=== PATIENT | female | born 1995 | race African-American/Black ===

== ENCOUNTER 2021-07-08 07:23 | Observation (INO) | payer MEDICAID ==
[~2021-07-08] VITALS: Ht 172.7 cm; Wt 108.9 kg
[2021-07-08] MEDS ORDERED: PREN1TAB78 MT (08:10)
== END 2021-07-08 10:00 | disposition home or self-care (01) ==
LOC: 8 EST LDRP 07:23
PROVIDERS: ADMIT Obstetrics & Gynecology; ATTEND Obstetrics & Gynecology
DX: O62.9 Abnormality of forces of labor, unspecified (principal); O26.893 Other specified pregnancy related conditions, third trimester; R10.9 Unspecified abdominal pain; Z3A.39 39 weeks gestation of pregnancy
CPT/HCPCS: 59025; 76815; 76818; G0378; 99281

== ENCOUNTER 2021-07-11 13:21 | Inpatient (IN) | payer MEDICAID ==
[~2021-07-11] VITALS: Ht 172.7 cm; Wt 108.9 kg
[~2021-07-11 13:21] MED LIST: PREN1TAB78 MT
[2021-07-11] MEDS ORDERED: LIDOCAINE HCL 1% 20ML VIAL (Pyxis) INJ INFIL SCH ×2 (14:30→15:15)
[2021-07-11] MEDS ORDERED: BUTORPHANOL TARTRATE 2 MG/ML VIAL IV PRN (14:30)
[2021-07-11] MEDS: LACTATED RINGERS 1,000 ML IV SCH ×2 (14:30→18:40)
[2021-07-11] MEDS ORDERED: METHYLERGONOVINE MALEATE 0.2 MG/ML IM PRN ×2 (14:30→15:15)
[2021-07-11] MEDS ORDERED: DEXT 5%/LR + PITOCIN 20UNITS/L 1,000 ML IV SCH ×2 (14:30→15:15)
[2021-07-11] MEDS ORDERED: LACTATED RINGERS 1,000 ML IV SCH (15:15)
[2021-07-11] MEDS ORDERED: NALOXONE HCL 0.4 MG/ML 1ML VIAL IM PRN (15:15)
[2021-07-11] MEDS ORDERED: RHO(D) IMMUNE GLOBULIN 300 MCG/SYR IM PRN (15:15)
[2021-07-11] MEDS ORDERED: MINERAL OIL 30ML BOTTLE TOP NR (15:30)
[2021-07-11 15:41] LABS: CLARITY URINE CLEAR (CLEAR); COLOR URINE YELLOW (YELLOW); KETONES URINE NEGATIVE (NEGATIVE); LEUKOCYTE ESTERASE URINE NEGATIVE (NEGATIVE); NITRITE URINE NEGATIVE (NEGATIVE); OCCULT BLOOD URINE NEGATIVE (NEGATIVE); PROTEIN URINE 1+ (NEGATIVE); UROBILINOGEN URINE 0.2 E.U./dL (0.2-1.0)
[2021-07-11 15:59] LABS: BASOPHILS % 0.4 % (0.0-2.0); EOSINOPHILS % 1.5 % (0.0-5.0); HEMATOCRIT. 33.4 % (36.0-48.0); HEMOGLOBIN. 11.3 g/dL (12.0-16.0); LYMPHOCYTES % 14.6 % (20.0-50.0); MEAN CORPUSCULAR HEMOGLOBIN 31.2 pg (28.0-32.0); MEAN PLATELET VOLUME 10.5 fl (7.4-10.4); MONOCYTES % 5.7 % (2.0-8.0); NEUTROPHILS % 77.8 % (40.0-76.0); PLATELET 167 x1000/uL (130-400); RED BLOOD CELL COUNT 3.63 mill/uL (4.2-5.4); RED CELL DISTRIBUTION WIDTH 13.9 % (11.6-14.6)
[2021-07-11 16:00] LABS: *AMPHETAMINES SCREEN URINE NEGATIVE (NEGATIVE); *BARBITURATES SCREEN URINE NEGATIVE (NEGATIVE)
[2021-07-11 16:01] LABS: *BENZODIAZEPINES SCREEN URINE NEGATIVE (NEGATIVE); *COCAINE SCREEN URINE NEGATIVE (NEGATIVE); METHADONE URINE SCREEN NEGATIVE (NEGATIVE); OPIATES URINE SCREEN NEGATIVE (NEGATIVE); PHENCYCLIDINE URINE SCREEN NEGATIVE (NEGATIVE)
[2021-07-11 16:02] LABS: CANNABINOID URINE SCREEN NEGATIVE (NEGATIVE)
[2021-07-11] MEDS: MISOPROSTOL 100MCG TABLET VG SCH ×2 (16:17→20:24)
[2021-07-11 16:19] LABS: INR 0.9; PARTIAL THROMBOPLASTIN TIME 27.2 sec (23.4-31.0); PROTHROMBIN TIME 10.1 sec (9.6-11.0)
[2021-07-11 16:36] LABS: HEPATITIS B SURFACE ANTIGEN NEGATIVE
[2021-07-11] MEDS ORDERED: ROPIVACAINE HCL/PF EPIDURAL 200 ML EPI SCH (18:15)
[2021-07-12] MEDS: LACTATED RINGERS 1,000 ML IV SCH ×2 (01:21→18:52)
[2021-07-12] MEDS: MISOPROSTOL 100MCG TABLET VG SCH ×4 (03:57→21:30)
[2021-07-12] MEDS ORDERED: OXYTOCIN 10 UNITS/ML 1ML ONE (23:57)
[2021-07-12] MEDS ORDERED: CEFAZOLIN SODIUM 1000MG/VIAL ONE (23:57)
[2021-07-12] MEDS ORDERED: ONDANSETRON HCL 4MG/2ML INJ ONE (23:57)
[2021-07-12] MEDS ORDERED: MORPHINE SULFATE/PF 1MG/ML 10ML AMP ONE (23:57)
[2021-07-12] MEDS ORDERED: FENTANYL CITRATE/PF 50MCG/ML 2ML VIAL ONE (23:57)
[2021-07-12] MEDS ORDERED: EPHEDRINE SULFATE 50MG/ML VIAL ONE (23:57)
[2021-07-13] VITALS (7 sets, daily range): BP systolic 111–131; BP diastolic 59–84
[2021-07-13] MEDS ORDERED: DIPHENHYDRAMINE 50MG/ML VIAL ONE (01:19)
[2021-07-13] MEDS ORDERED: KETOROLAC 60MG/2ML VIAL IM ONE (01:19)
[2021-07-13] MEDS ORDERED: NALOXONE HCL 0.4 MG/ML 1ML VIAL IV PRN (01:30)
[2021-07-13] MEDS ORDERED: BUTORPHANOL TARTRATE 2 MG/ML VIAL IV PRN (01:30)
[2021-07-13] MEDS ORDERED: DIPHENHYDRAMINE 50MG/ML VIAL IV PRN (01:30)
[2021-07-13] MEDS ORDERED: BISACODYL 10MG SUPP PR PRN (01:45)
[2021-07-13] MEDS ORDERED: HYDROCODONE/ACETAMINOPHEN 5/325MG TABLET PO PRN (01:45)
[2021-07-13] MEDS ORDERED: DIPHENHYDRAMINE 25MG CAPSULE PO PRN (01:45)
[2021-07-13] MEDS ORDERED: HEMORRHOIDAL SUPP PR PRN (01:45)
[2021-07-13] MEDS ORDERED: IBUPROFEN 400MG TABLET PO PRN (01:45)
[2021-07-13] MEDS ORDERED: LANOLIN OINT 7GM TUBE TOP PRN (01:45)
[2021-07-13] MEDS ORDERED: ONDANSETRON HCL 4MG/2ML INJ IV PRN (01:45)
[2021-07-13] MEDS: DEXT 5%/LR + PITOCIN 20UNITS/L 1,000 ML IV SCH ×2 (02:09→10:35)
[2021-07-13] MEDS: PRENATAL VIT/FE FUMARATE/FA TABLET PO SCH (09:09)
[2021-07-13] MEDS: SIMETHICONE 80MG TABLET CHEW PO SCH ×4 (09:10→21:03)
[2021-07-13] MEDS: KETOROLAC 30MG/ML VIAL IV SCH ×2 (09:11→16:09)
[2021-07-13] MEDS ORDERED: INFLUENZA VACCINE 05/PF 0.5 ML SYRINGE IM ONE (20:00)
[2021-07-13] MEDS ORDERED: TETANUS, DIPHTHERIA, PERTUSSIS VAC/PF 0.5ML (>10YR OLD) IM ONE (20:00)
[2021-07-13] MEDS: DOCUSATE SODIUM 100MG CAPSULE PO SCH (21:03)
[2021-07-14] MEDS: IBUPROFEN 800MG TABLET PO PRN ×3 (00:21→16:02)
[2021-07-14 04:30] VITALS: BP 109/68
[2021-07-14 06:43] LABS: BASOPHILS % 0.4 % (0.0-2.0); EOSINOPHILS % 1.7 % (0.0-5.0); HEMATOCRIT. 28.4 % (36.0-48.0); HEMOGLOBIN. 9.6 g/dL (12.0-16.0); LYMPHOCYTES % 17.1 % (20.0-50.0); MEAN CORPUSCULAR HEMOGLOBIN 31.4 pg (28.0-32.0); MEAN CORPUSCULAR VOLUME 92.7 fL (81.0-99.0); MEAN PLATELET VOLUME 9.9 fl (7.4-10.4); MONOCYTES % 8.7 % (2.0-8.0); NEUTROPHILS % 72.1 % (40.0-76.0); PLATELET 150 x1000/uL (130-400); RED BLOOD CELL COUNT 3.06 mill/uL (4.2-5.4); RED CELL DISTRIBUTION WIDTH 13.5 % (11.6-14.6)
[2021-07-14 07:30] VITALS: BP 125/86
[2021-07-14] MEDS: FERROUS SULFATE 325MG TABLET PO SCH ×2 (08:50→14:42)
[2021-07-14] MEDS: PRENATAL VIT/FE FUMARATE/FA TABLET PO SCH (08:50)
[2021-07-14] MEDS: SIMETHICONE 80MG TABLET CHEW PO SCH ×3 (08:50→22:16)
[2021-07-14 16:31] VITALS: BP 126/79
[2021-07-14 20:00] VITALS: BP 121/67
[2021-07-14] MEDS: DOCUSATE SODIUM 100MG CAPSULE PO SCH (22:16)
[2021-07-15] MEDS: IBUPROFEN 800MG TABLET PO PRN ×2 (01:46→09:22)
[2021-07-15 04:00] VITALS: BP 120/70
[2021-07-15 07:54] VITALS: BP 118/70
[2021-07-15] MEDS: SIMETHICONE 80MG TABLET CHEW PO SCH (09:22)
[2021-07-15] MEDS: FERROUS SULFATE 325MG TABLET PO SCH (09:22)
[2021-07-15] MEDS: PRENATAL VIT/FE FUMARATE/FA TABLET PO SCH (09:23)
== END 2021-07-15 13:30 | disposition home or self-care (01) | DRG 540 ==
LOC: 8 EST LDRP 13:21 → OBSVTOIN 18:00 → 8EST 07-13 04:31
PROVIDERS: ADMIT Student in an Organized Health Care Education/Training Program; ATTEND Obstetrics & Gynecology
PROC: 3E0P7GC Introduction of Other Therapeutic Substance into Female Reproductive, Via Natural or Artificial Opening (ICD-10-PCS; 2021-07-11)
PROC: 10D00Z1 Extraction of Products of Conception, Low, Open Approach (ICD-10-PCS; principal; 2021-07-13)
DX: O48.0 Post-term pregnancy (principal); O61.0 Failed medical induction of labor; Z20.822 Contact with and (suspected) exposure to COVID-19; O69.81X0 Labor and delivery complicated by cord around neck, without compression, not applicable or unspecified; Z37.0 Single live birth; Z3A.40 40 weeks gestation of pregnancy
CPT/HCPCS: 36415; 80305; 81003; 85025; 86592; 86703; 86762; 86850; 86900; 87340; 87426; 88307; 90686; 90715; 99281; G0378; J0690; J1200; J1885; J2274; J2405; J2590; J3010; J3490; J7120